=== PATIENT | male | born 1945 | race Caucasian/White ===

== ENCOUNTER 2021-11-01 09:31 | Day surgery (SDC) | payer MEDICARE, BC ==
--- OUTSIDE RECORDS SUMMARY | 2021-10-09 12:02 | XMSREPORT | Referral Summary ---
:1945 [facility] Address [address] [place] [address] [address] [place] [address] Care Team Providers Name Role Phone Jose Rafael Damian BOLANOS Unavailable MD Ifeanyi Primary Care Provider Megan Sewell PA-C Unavailable Reason for Referral Transitions of Care (Routine) - New Request Specialty Diagnoses / Procedures Referred By Contact Refer red To Contact Diagnoses History of colon polyps Michelle Sewell PA-C [facility], [address] [place] [address] [address] [place] [address] Phone: Fax: Referral ID Status Reason Start Expiration Visits Visits Date Date Requested Authorized [id number] New Request Patient 1 Preference 1 MATOR Reason for Visit Reason Comments Pre-Op Exam colonoscopy, we need to sche dule Encounter Details Date Type Department Care Team Description 10/09/2021 Office Visit [facility] [place] Michelle Sewell, History of c olon polyps [facility] (Primary Dx) [address] [place] [address] [place] [address] Allergies Active Allergy Reactions Severity Noted Date Comments Hydrocodone Nausea High 09/21/2019 States nausea a nd inability to void when on this. 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 09/21/2019 Overview: 02/11 aphasia has improved, walks by h imself, hopes to get back [place] Impaired gait and mobility 09/21/2019 Impaired instrumental activities of daily living (IADL ) 09/21/2019 Decreased activities of daily living (ADL) 09/21/2019 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 skilled nursing Constipation 07/15/2019 Overview: Rx Miralax 03/06 Dysphagia 07/15/2019 Choking 07/15/2019 Constipation due to opioid therapy 07/13/2019 Urinary retention 07/13/2019 H/O total hip arthroplasty, left 07/12/2019 Wrist arthritis 10/14/2016 ANUJ on CPAP 11/14/2015 Overview: Cpap 14 cmh20. Sleep apnea 05/07/2010 Overview: Uses CPAP documented as of this encounter (statuses as of 10/09/2021) Resolved Problems Problem Noted Date Resolved Date Right wrist pain 06/10/2016 10/14/2016 Retained orthopedic hardware 06/10/2016 10/14/2016 Closed fracture of distal end of right radius 04/21/2015 09/01/2015 Lumbosacral spondylosis without myelopathy 03/17/2015 09/01/2015 Degeneration of lumbar or lumbosacral intervertebral disc 09/01/2015 Hiccups 04/29/2013 09/01/2015 Overview: chronic Elevated prostate specific antigen (PSA) 05/28/2011 04/21/2015 Viral infection 07/20/2010 11/12/2013 Other and unspecified hyperlipidemia 06/21/2010 documented as of this encounter (statuses as of 10/09/2021) Immunizations Name Administration Dates Next Due FLU VACCINE HIGH DOSE 65YR+(Fluzone) 08/30/2020, 09/21/2019, 09/01/2015, 12/09/2013 INFLUENZA HIGH DOSE (FLUZONE) 65 YEARS 08/06/2021 AND UP Influenza Vaccine,unspecified 09/07/2019 (Deferred: Patient Refused) Pneumococcal Conj PCV13 09/01/2015 Pneumococcal Polysaccharide PPSV23 12/09/2013, 05/07/2010 TD,not adsorbed 06/14/2005 TDAP 09/01/2015 Tetanus Toxoid,not adsorbed 06/14/2005 documented as of this encounter Social History Tobacco Use Types Packs/Day Years Used Date Former Smoker Cigarettes Quit: 11/17/18 76 Smokeless Tobacco: Never Used Alcohol Use Standard Drinks/Week Comments Yes 0 (1 standard drink = 0.6 oz pure alcoho l) 2-3 bottles beer/month Alcohol Habits Answer Date Recorded How often do you have a drink containing 2-4 times a month 09/21/2019 alcohol? How many drinks containing alcohol do you have 1 or 2 09/21/2019 on a typical day when you are drinking? How often do you have six or more drinks on one Never 09/21/2019 occasion? Comment: 2-3 bottles beer/month 09/01/2015 Sexually Active Control Partners Comments Yes Female Sex Assigned at Date Recorded Not on file documented as of this encounter Last Filed Vital Signs Vital Sign Reading Time Taken Comments Blood Pressure 132/60 10/09/2021 9:34 AM ESTIMATOR Pulse 62 10/09/2021 9:34 AM ESTIMATOR Temperature 37.3 C (99.1 F) 10/09/2021 9:34 AM ESTIMATOR Respiratory Rate 18 10/09/2021 9:34 AM ESTIMATOR Oxygen Saturation 96% 10/09/2021 9:34 AM ESTIMATOR Inhaled Oxygen Concentration - - Weight - - Height - - Body Mass Index - - documented in this encounter Functional Status Functional Status Response Date of Assessment Is the person deaf or does he/she have serious difficulty No 09/21/2019 hearing? Is this person blind or does he/she have difficulty No 09/21/2019 seeing even when wearing glasses? Do you have difficulty with walking, balance, climbing No 10/09/2021 stairs, or had a fall in the last 3 months? Does the patient have difficulty dressing or bathing? Yes 09/21/2019 Because of a physical, mental, or emotional condition; Yes 09/21/2019 does this person have difficulty doing errands alone such as visiting a doctor's office or shopping? Cognitive Status Response Date of Assessment Because of a physical, mental, or emotional condition; Yes 09/21/2019 does this person have serious difficulty concentrating, remembering, or making decisions? documented as of this encounter Plan of Treatment Date Type Specialty Care Team Description 10/09/2021 Orders Only Laboratory Cystitis with h ematuria 11/28/2021 Office Visit Orthopedics Aram Rowland MD [address] [place] [address] DR Monica YUN, [place] [address] (Wo rk) Name Type Priority Associated Diagnoses Order S [facility] CLINIC REFERRAL Referral Routine History of colon polyps O rdered: 10/09/2021 ENDOSCOPY NON ONE CHART documented as of this encounter Implants Implanted Type Area Risk Management Professional Device Shelf Model / Identifier Expiration Serial / Date Lot Nerve Protect Axoguard 7x40mm N [id number] Ea - [id number] Bone/Tiss Righ t: AXOGEN 06/06/2017 [id number] / Implanted: Qty: 1 on 07/26/2016 [facility] / aft [id number] Description: verified with Dr. Zamarripa Imperial Suture Artx 5.5x19.1mm N [id number] Bx5/Ea - [id number] Ortho Other Right: SHOULDER ARTHREX 08/30/2015 [id number] / Implanted: Qty: 1 on 11/30/2013 at [facility] / [id number] Description: Implant size and expiration verified with physician. Hip Shell Trid Hutson 0hl 56mm N 540-11-56f Ea1 - Sn/A Total Jt Hip Left: HIP LORNE 10/20/2023 540-11-56F / Implanted: Qty: 1 on 07/12/2019 by Aram Christopher MD at [facility] N/A / [id number] Description: implant verbally ordered by Dr Rowland. Verified with surgical team prior to use. Hip Lnr Trid X3 Pe 10d 36mm F N 623-10-36f Ea1 - Sn/A Total Jt H ip Left: HIP LORNE 03/25/2024 623-10-36F / Implanted: Qty: 1 on 07/12/2019 by Aram Christopher MD at [facility] N/A / [id number] Description: implant verbally ordered by Dr Rowland. Verified with surgical team prior to use. Hip Stem Acldii 127d Sz6 N 5868-3577 Ea1 - Sn/A Total Jt Hip Left: HI P LORNE 03/28/2024 [id number] / Implanted: Qty: 1 on 07/12/2019 by Aram Christopher MD at [facility] N/A / [id number] Description: implant verbally ordered by Dr Rowland. Verified with surgical team prior to use. Hip Hd V40 [place] Cer 36mm +0 N 6570-0-136 Ea1 - Sn/A Total Jt H ip Left: HIP LORNE 06/10/2024 [id number] / Implanted: Qty: 1 on 07/12/2019 by Aram Christopher MD at [facility] N/A / [id number] Description: implant verbally ordered by Dr Rowland. Verified with surgical team prior to use. documented as of this encounter Visit Diagnoses Diagnosis History of colon polyps - Primary Personal history of colonic polyps Cystitis with hematuria Cystitis, unspecified documented in this encounter Care Teams Cigarette Paper Tester Relationship Specialty Start Date End Date Darrel Suggs MD PCP - General 10/11/[address] [facility] [address] [place], [place] [id number] Michelle Sewell PA-C PCP - Attributed Provider 07/12/[address] [facility] [address] [place] [address] Rachel Mantilla, DO Family Medicine 11/12/[address] [place], [place] [id number] documented as of this encounter
[~2021-11-01 09:31] MED LIST: Midazolam 1 MG/ML 2 ML SDV ONE; Propofol 200 MG/20 ML SDV ONE
[2021-11-01] MEDS ORDERED: Sodium Chloride 0.9% 10 ML Syringe FLUSH PRN (09:45)
[2021-11-01] MEDS ORDERED: Lactated Ringers 1,000 ML IV SCH (09:45)
[2021-11-01] MEDS ORDERED: Propofol 200 MG/20 ML SDV ONE (11:05)
[2021-11-01] MEDS ORDERED: Midazolam 1 MG/ML 2 ML SDV ONE (11:05)
--- NOTE | 2021-11-01 11:09 | PCM.PN ---
- General Info Date of Service: 11/01/21 - Review of Systems Systems Review Comment:: 76-year-old male with history of colon polyps here for surveillance colonoscopy. He is medically stable to proceed today. His recent history and physical by Michelle Sewell is reviewed and no significant changes are noted. I have discussed the proposed colonoscopy with the patient. Risks such as but not limited to GI injury and bleeding are reviewed. He agrees to proceed. - Patient Data Vitals - Most Recent: Last Vital Signs Temp 98.0 F 11/01/21 10:11 Pulse 68 11/01/21 10:11 Resp 18 11/01/21 10:11 BP 160/96 H 11/01/21 10:11 Pulse Ox 18 L 11/01/21 10:11 Weight - Most Recent: 90.718 kg Med Orders - Current: Current Medications Lactated Ringer's (Ringers, Lactated) 1,000 mls @ 125 mls/hr IV ASDIRECTED JACQUE Last Admin: 11/01/21 10:17 Dose: 125 mls/hr Documented by: Sodium Chloride (Sodium Chloride 0.9% 10 Ml Syringe) 10 ml FLUSH ASDIRECTED PRN PRN Reason: Keep Vein Open Discontinued Medications Midazolam HCl (Midazolam 1 Mg/Ml 2 Ml Sdv) Confirm Administered Dose 2 mg .ROUTE .STK-MED ONE Stop: 11/01/21 08:40 Propofol (Propofol 200 Mg/20 Ml Sdv) Confirm Administered Dose 400 mg .ROUTE .STK-MED ONE Stop: 11/01/21 08:40 Sepsis Event Note - Focused Exam Vital Signs: Vital Signs Temp Pulse Resp BP Pulse Ox 11/01/21 10:11 98.0 F 68 18 160/96 H 18 L - Problem List Review Problem List Initiated/Reviewed/Updated: Yes - My Orders Last 24 Hours: My Active Orders 11/01/21 09:45 Patient Status [ADT] Routine Peripheral IV Care [RC] . DIRECTED Verify Patient Consent Obtain [RC] ASDIRECTED Lactated Ringers [Ringers, Lactated] 1,000 ml IV ASDIRECTED Sodium Chloride 0.9% [Saline Flush] 10 ml FLUSH ASDIRECTED PRN Peripheral IV Insertion Adult [OM.PC] Routine - Assessment Assessment:: History of colon polyps - Plan Plan:: Colonoscopy
--- NOTE | 2021-11-01 11:55 | PCM.OPNOTE ---
- General Post-Op/Procedure Note Date of Surgery/Procedure: 11/01/21 Operative Procedure(s): Colonoscopy with Polypectomy Findings: Polyps x 2 Pre Op Diagnosis: History of colon polyps Post-Op Diagnosis: Colon Polyps Anesthesia Technique: MAC Primary Surgeon: Hill Hernández Pathology: Colon Polyps EBL in mLs: 0 Complications: None Condition: Good
--- NOTE | 2021-11-01 19:14 | OR ---
Date of Procedure: 11/01/2021 PREOPERATIVE DIAGNOSIS: History of colon polyps. POSTOPERATIVE DIAGNOSES: Colon polyps, diverticulosis. OPERATION PERFORMED: Colonoscopy with polypectomy. INDICATIONS FOR SURGERY: This 76-year-old male has a known history of colon polyps and comes today for surveillance colonoscopy. FINDINGS: 2 polyps were noted on today's exam. There is a 6 mm pedunculated polyp in the transverse colon, and a 9 mm pedunculated polyp in the ascending colon. There is also a moderate amount of diverticulosis in the sigmoid region. Colon otherwise appears normal. DESCRIPTION OF PROCEDURE: The patient was taken to the operating room. He was given intravenous sedation, and with him in the left lateral decubitus position, digital rectal exam was performed showing no rectal masses. The Olympus colonoscope was inserted into the rectum. Retroflexed examination of the rectal canal was performed. The scope was then carefully advanced under direct visualization to the ascending colon. The above-described polyps in that location were identified. It was removed with a cautery snare and retrieved into a polyp trap. The scope was then further advanced with the help of hand pressure and placing the patient in the supine position to the cecum. Cecal acquisition was confirmed by noting normal internal cecal anatomy including the appendiceal orifice and the ileocecal valve. The light was also noted to transilluminate the abdominal wall in the right lower quadrant. After examining the cecum, the scope was slowly withdrawn sequentially re-examining the colonic segments. In the transverse colon, the other above-described polyp was identified. On withdrawal of the scope, this was removed with a cautery snare and retrieved. Examination is then completed, and with no sign of bleeding or any other complication, the scope was removed and then the patient was taken from the operating room in satisfactory condition. ESTIMATED BLOOD LOSS: Zero. COMPLICATIONS: None. PROGNOSIS: Good. EMANUEL Hernándze MD /[id number]
== END 2021-11-01 12:51 | disposition home or self-care (01) ==
LOC: LL.SDS 09:31
PROVIDERS: ATTEND Surgery
DX: Z12.11 Encounter for screening for malignant neoplasm of colon (principal); D12.2 Benign neoplasm of ascending colon; D12.3 Benign neoplasm of transverse colon; K57.30 Diverticulosis of large intestine without perforation or abscess without bleeding; N39.0 Urinary tract infection, site not specified; H61.21 Impacted cerumen, right ear; G47.33 Obstructive sleep apnea (adult) (pediatric); K21.9 Gastro-esophageal reflux disease without esophagitis; E66.9 Obesity, unspecified; N40.1 Benign prostatic hyperplasia with lower urinary tract symptoms; N13.8 Other obstructive and reflux uropathy; Z88.5 Allergy status to narcotic agent
CPT/HCPCS: 00812; 45385; J2250; J2704; J7120; 88305